=== PATIENT | female | born 1945 | race Caucasian/White ===

== ENCOUNTER → 2016-08-14 | Day surgery (SDC) | payer BC ==
--- NOTE | 2016-08-16 10:17 | PATH ---
Cytology Non-Gynecological Report Patient Name: COY MCCORMICK [facility]. Rec. #: [id number] /Age/Gender: 1945 (Age: 70) / F Account: [id number] Location: RADIOLOGY Taken: 08/14/2016 Received: 08/14/2016 Reported: 08/16/2016 Physicians: Carson Daniel M.D. Specimen(s) Received RIGHT THYROID FNA Clinical History Right thyroid nodule, 0.75 x 0.40 x 0.35 cm Final Diagnosis THYROID GLAND, RIGHT LOBE, US GUIDED FINE NEEDLE ASPIRATION BIOPSY: SATISFACTORY FOR EVALUATION. NO MALIGNANT CELLS IDENTIFIED. 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 Comment: The smears and the cell block shows scattered clusters of bland appearing follicular epithelial cells some with Hurthle cell (oncocytic) change. Scattered lymphocytes are present in the background suggestive of lymphocytic thyroiditis. Colloid is present. Clinical and serological correlations are suggested. Electronically Signed Fawad Kinsey M.D. Gross Description Received are four air dried smears, four smears in 95% alcohol, and 20 cc of bloody fluid in formalin. Four diff-quik stained slides, four Pap stained slides and one cell block are made.
== END | disposition home or self-care (01) ==
LOC: JRADIR 08:39
PROVIDERS: ATTEND Family Medicine
PROC: 0GBH3ZX Excision of Right Thyroid Gland Lobe, Percutaneous Approach, Diagnostic (ICD-10-PCS; principal; 2016-08-14)
PROC: BG44ZZZ Ultrasonography of Thyroid Gland (ICD-10-PCS; 2016-08-14)
DX: E04.1 Nontoxic single thyroid nodule (principal)
CPT/HCPCS: 76942; 88173; 88305-TC

== ENCOUNTER 2021-11-22 15:54 | Emergency (ER) | payer BC ==
[2021-11-22 16:49] VITALS: TEMP 97.6; BMI 31.2
[2021-11-22 18:51] LABS: BASO % 0.6 % (0-2.0); EOS % 1.1 % (0-4.5); HEMATOCRIT 48.3 % (32.4-45.2); HEMOGLOBIN 16.3 GM/dL (10.7-15.3); LYMPH % 18.3 % (8-40); MCH 31.5 pg (25.7-33.7); MCHC 33.8 g/dl (32.0-36.0); MEAN CELL VOLUME 93.1 fl (80-96); MEAN PLT VOLUME 9.5 fl (7.5-11.1); MONO % 6.1 % (3.8-10.2); NEUT % 73.9 % (42.8-82.8); PLATELET COUNT 170 10^3/uL (134-434); RBC 5.19 M/mm3 (3.60-5.2); WHITE BLOOD COUNT 6.4 K/mm3 (4.0-10.0)
[2021-11-22 19:17] LABS: CALCIUM 9.1 mg/dL (8.5-10.1)
[2021-11-22 19:18] LABS: ALBUMIN 3.8 g/dl (3.4-5.0); BLOOD UREA NITROGEN 13.8 mg/dL (7-18)
[2021-11-22 19:21] LABS: CREATININE 0.7 mg/dL (0.55-1.3)
[2021-11-22 19:22] LABS: BILIRUBIN,TOTAL 0.7 mg/dL (0.2-1)
[2021-11-22 19:23] LABS: TOT PROT 7.7 g/dl (6.4-8.2)
[2021-11-22 19:24] LABS: EPI CELLS 3 /uL (0-25.1); HYALINE CASTS 0 /uL (0-3.1); URINE APPEARANCE CLEAR; URINE BACTERIA 15 /uL (0-1359); URINE BILIRUBIN NEGATIVE (NEGATIVE); URINE COLOR YELLOW; URINE GLUCOSE (UA) NEGATIVE (NEGATIVE); URINE KETONE TRACE (NEGATIVE); URINE LEUK ESTERASE NEGATIVE (NEGATIVE); URINE NITRITE NEGATIVE (NEGATIVE); URINE PROTEIN 1+ (NEGATIVE); URINE RBC 18 /uL (0-23.9); URINE UROBILINOGEN 0.2 mg/dL (0.2-1.0); URINE WBC 3 /uL (0-25.8)
[2021-11-22 20:00] VITALS: PULSE 99
[2021-11-22] MEDS ORDERED: LISINOPRIL 20 MG TABLET PO ONE (20:17)
[2021-11-22] MEDS ORDERED: HYDROCHLOROTHIAZIDE 25 MG TABLET (FP) PO ONE (20:17)
[2021-11-22] MEDS ORDERED: HYDROCHLOROTHIAZIDE 25 MG TABLET (FP) ONE (20:37)
[2021-11-22] MEDS ORDERED: LISINOPRIL 20 MG TABLET ONE (20:37)
[2021-11-22 21:17] VITALS: BP 188/154
== END 2021-11-22 21:46 | disposition home or self-care (01) ==
LOC: JER 15:54
DX: I10 Essential (primary) hypertension (principal)
CPT/HCPCS: 36415; 80053; 81003; 85025; 87086; 93005; 93010; 99283-25

== ENCOUNTER 2023-07-21 07:41 | Emergency (ER) | payer BC ==
[2023-07-21 08:01] VITALS: PULSE 80; RESP 18; TEMP 97.1; BMI 29.9
[2023-07-21] MEDS: CARBAMIDE PEROXIDE 6.5% OTIC 15 ML BOTTLE AU ONE (10:02)
[2023-07-21] MEDS ORDERED: DOCUSATE SODIUM 100 MG CAPSULE (FP) PO ONE (10:54)
[2023-07-21] MEDS: DOCUSATE NA 100 MG/10 ML UNIT-DOSE CUPS PO ONE (10:55)
[2023-07-21 11:30] VITALS: BP 185/104
== END 2023-07-21 11:45 | disposition home or self-care (01) ==
LOC: JER 07:41
DX: H91.93 Unspecified hearing loss, bilateral (principal); H61.23 Impacted cerumen, bilateral; I10 Essential (primary) hypertension
CPT/HCPCS: 99283-25